=== PATIENT | male | born 1970 | race Caucasian/White ===

== ENCOUNTER 2016-09-14 14:30 | Emergency (ER) | payer SELFPAY ==
[2016-09-14] MEDS ORDERED: NS 1,000 ML IV ONE (14:53)
--- NOTE | 2016-09-14 14:53 | CPEKG ---
Heart Rate: 58 RR Interval: 1034 P-R Interval: 156 QRSD Interval: 84 QT Interval: 408 QTC Interval: 401 P [place]: 52 QRS [place]: 54 T Wave [place]: 43 EKG Severity - NORMAL ECG - EKG Impression: SINUS RHYTHM Electronically Signed By: Jovan Alexander 14-Sep-2016 20:45:49
--- NOTE | 2016-09-14 14:53 | EDPHY ---
H & P HPI/ROS: HPI CHIEF COMPLAINT: Right-sided chest pain HISTORY OF PRESENT ILLNESS: This patient very pleasant 46-year-old male denies any significant medical history except for GERD and takes omeprazole he is visiting [facility] from [place], he presents emergency room after was seen at Urgent Care for right-sided chest discomfort. He had a EKG urgency that was unremarkable. He was told to go the emergency room by EMS for chest pain evaluation. Denies having shortness of breath, pleuritic pain, hemoptysis , denies history of DVT or PE. Does tell me that he has right-sided chest discomfort that he describes a dull ache nonradiating. He does tell me that this is been present constantly for the past 2 weeks and is not went away. It is located on his right side. He describes a dull ache right-sided chest constant in nature for 2 weeks. No associated shortness of breath. No associated nausea no associated diaphoresis. Denies fever. Denies any leg swelling or calf pain. He does tell me that this started after doing 20 pushups the day before. He does tell me that it does hurt slightly when he moves his right arm around also sometimes he has tenderness when you press on his right anterior chest wall. Denies trauma. Past Medical History: GERD Past Surgical History: No significant surgical history Social History: Social smoker, social drinker, denies illicit drugs, visiting from [place] Family History: Noncontributory ROS REVIEW OF SYSTEMS: A comprehensive 10 point review of systems is otherwise negative aside from elements mentioned in the history of present illness. Exam Constitutional appears well nontoxic, triage nursing summary reviewed, vital signs reviewed, awake/alert. Eyes normal conjunctivae and sclera, EOMI, PERRLA. HENT normal inspection, atraumatic, moist mucus membranes, no epistaxis, neck supple/ no meningismus, no raccoon eyes. Respiratory clear to auscultation bilaterally, normal breath sounds, no respiratory distress, no wheezing. Cardiovascular chest wall: Nontender palpation, rate normal, regular rhythm, no murmur, no edema, distal pulses normal. Gastrointestinal soft, non-tender, no rebound, no guarding, normal bowel sounds, no distension, no pulsatile mass. Genitourinary no CVA tenderness. Musculoskeletal no midline vertebral tenderness, full range of motion, no calf swelling, no tenderness of extremities, no meningismus, good pulses, neurovascularly intact. Skin pink, warm, & dry, no rash, skin atraumatic. Neurologic awake, alert and oriented x 3, AAOx3, moves all 4 extremities equally, motor intact, sensory intact, CN II-XII intact, normal cerebellar, normal vision, normal speech. Psychiatric normal mood/affect. Heme/Lymph/Immune no lymphadenopathy. Differential diagnosis includes but is not limited to: ACS, atypical chest pain , pneumothorax, pneumonia, pulmonary embolism, aortic dissection, congestive heart failure, tumor, musculoskeletal pain, esophageal pain, GERD, peptic ulcer disease, pancreatitis Medical Decision Making: The IV establishment, blood work, EKG, full cardiac rn, chest x-ray troponin and D-dimer. This appears to be atypical chest pain right-sided dull ache. Will evaluate for acute coronary syndrome however. Re-evaluation: EKG interpretation by me on record in [employer] system. Impression time of EKG 1452, this is sinus rhythm rate of 58, there is no acute ischemic changes specifically no ST elevation, ST depression, T-wave abnormalities prolonged intervals. No signs of cardiac arrhythmia. Unremarkable EKG. 1713: Re-evaluation this time patient resting comfortably no complaints. I did go over in detail his blood work, including negative troponin, negative D- dimer, nonischemic EKG and a chest x-ray with rib series does not indicate acute rib fracture on the right side. He has right-sided rib pain mild tenderness palpation on exam. Unrevealing workup here in emergency room no indication of acute coronary syndrome. Plan is to repeat troponin EKG and this is normal allow be discharged from the emergency room. He understands return to the ER if develops worsening pain shortness of breath or does not feel well. EKG interpretation by me on record in [employer] system. Impression time of EKG 17 50, this is a repeat EKG sinus rhythm rate of 55 no acute ischemic changes appreciated. Unremarkable EKG. Source: Patient, EMS Constitutional: Initial Vital Signs Temperature (C) 36.7 C 09/14/16 14:49 Heart Rate 61 09/14/16 14:49 Respiratory Rate 16 09/14/16 14:49 Blood Pressure 127/87 H 09/14/16 14:49 O2 Sat (%) 94 09/14/16 14:49 O2 Delivery Mode Room Air Allergies/Adverse Reactions: No Known Allergies Allergy (Unverified 09/14/16 14:48) Home Medications: Medication Instructions Recorded Omeprazole 09/14/16 Medical Decision Making - Diagnostics Imaging Results: Imaging Impressions Chest X-Ray 09/14/16 14:53 Impression: 1. Possible nondisplaced lateral right sixth rib fracture. 2. Mild peribronchial thickening which could be related to bronchitis. Ribs X-Ray 09/14/16 15:40 Impression: No rib fracture identified. - Data Points Laboratory Results: Laboratory Results 09/14/16 14:13 09/14/16 14:13 09/14/16 09/14/16 09/14/16 17:45 14:13 14:13 WBC RBC Hgb Hct MCV MCH MCHC RDW Plt Count MPV Neut % (Auto) Lymph % (Auto) [place] % (Auto) Eos % (Auto) Baso % (Auto) Nucleat RBC Rel Count Absolute Neuts (auto) Absolute Lymphs (auto) Absolute Monos (auto) Absolute Eos (auto) Absolute Basos (auto) Absolute Nucleated RBC Immature Gran % Immature Gran # PT 12.5 SEC SEC (12.0-15.0) INR 0.94 (0.83-1.16) APTT 27.2 SEC SEC (23.0-38.0) D-Dimer < 0.27 ug/mLFEU ug/mLFEU (0.00-0.50) Sodium 136 mEq/L mEq/L (134-144) Potassium 4.5 mEq/L mEq/L (3.5-5.2) Chloride 102 mEq/L mEq/L (97-110) Carbon Dioxide 23 mEq/l mEq/l (22-31) Anion Gap 11 mEq/L mEq/L (8-16) BUN 16 mg/dL mg/dL (7-23) Creatinine 1.0 mg/dL mg/dL (0.7-1.3) Estimated GFR > 60 Glucose 121 mg/dL H mg/dL (70-100) Calcium 9.9 mg/dL mg/dL (8.5-10.4) Magnesium 2.0 mg/dL mg/dL (1.6-2.3) Total Bilirubin 0.7 mg/dL mg/dL (0.1-1.4) Conjugated Bilirubin 0.4 mg/dL mg/dL (0.0-0.5) Unconjugated Bilirubin 0.3 mg/dL mg/dL (0.0-1.1) AST 33 IU/L IU/L (17-59) ALT 45 IU/L IU/L (21-72) Alkaline Phosphatase 109 IU/L IU/L (38-126) Creatine Kinase 100 IU/L IU/L (0-224) CK-MB (CK-2) Fraction 0.98 ng/mL ng/mL (0-3.19) Troponin I Pending < 0.012 ng/mL ng/mL (0-0.034) NT-Pro-B Natriuret Pep 47 pg/mL pg/mL (0-125) Total Protein 7.3 g/dL g/dL (6.3-8.2) Albumin 4.8 g/dL g/dL (3.5-5.0) Lipase 111.0 IU/L IU/L (23-300) 09/14/16 14:13 WBC 6.41 10^3/uL 10^3/uL (3.80-9.50) RBC 4.96 10^6/uL 10^6/uL (4.40-6.38) Hgb 16.3 g/dL g/dL (13.7-17.5) Hct 47.2 % % (40.0-51.0) MCV 95.2 fL fL (81.5-99.8) MCH 32.9 pg pg (27.9-34.1) MCHC 34.5 g/dL g/dL (32.4-36.7) RDW 12.6 % % (11.5-15.2) Plt Count 301 10^3/uL 10^3/uL (150-400) MPV 10.6 fL fL (8.7-11.7) Neut % (Auto) 62.2 % % (39.3-74.2) Lymph % (Auto) 27.1 % % (15.0-45.0) [place] % (Auto) 7.5 % % (4.5-13.0) Eos % (Auto) 2.3 % % (0.6-7.6) Baso % (Auto) 0.6 % % (0.3-1.7) Nucleat RBC Rel Count 0.0 % % (0.0-0.2) Absolute Neuts (auto) 3.98 10^3/uL 10^3/uL (1.70-6.50) Absolute Lymphs (auto) 1.74 10^3/uL 10^3/uL (1.00-3.00) Absolute Monos (auto) 0.48 10^3/uL 10^3/uL (0.30-0.80) Absolute Eos (auto) 0.15 10^3/uL 10^3/uL (0.03-0.40) Absolute Basos (auto) 0.04 10^3/uL 10^3/uL (0.02-0.10) Absolute Nucleated RBC 0.00 10^3/uL 10^3/uL (0-0.01) Immature Gran % 0.3 % % (0.0-1.1) Immature Gran # 0.02 10^3/uL 10^3/uL (0.00-0.10) PT INR APTT D-Dimer Sodium Potassium Chloride Carbon Dioxide Anion Gap BUN Creatinine Estimated GFR Glucose Calcium Magnesium Total Bilirubin Conjugated Bilirubin Unconjugated Bilirubin AST ALT Alkaline Phosphatase Creatine Kinase CK-MB (CK-2) Fraction Troponin I NT-Pro-B Natriuret Pep Total Protein Albumin Lipase Medications Given: Discontinued Medications Sodium Chloride (Ns) 1,000 mls @ 0 mls/hr IV ONCE ONE; Wide Open PRN Reason: Protocol Stop: 09/14/16 14:54 Last Admin: 09/14/16 16:45 Dose: Not Given Ketorolac Tromethamine (Toradol) 30 mg IVP EDNOW ONE Stop: 09/14/16 15:13 Last Admin: 09/14/16 16:45 Dose: Not Given Departure - Departure Disposition: Home, Routine, Self-Care Clinical Impression: Right-sided chest pain Condition: Good Instructions: Chest Pain (ED), Chest Wall Pain (ED) Additional Instructions: 1. Return emergency room if develops any worsening symptoms includes severe chest pain, shortness of breath you do not feel well. I would try a trial of anti-inflammatories including Tylenol Motrin. Referrals: Patient,NotPresent [Unknown] - As per Instructions
[2016-09-14 14:55] VITALS: RESP 16; TEMP 98.1
[2016-09-14 15:02] LABS: % IMMATURE GRANULYOCYTES 0.3 % (0.0-1.1); ABSOLUTE IMMATURE GRANULOCYTES 0.02 10^3/uL (0.00-0.10); ADD DIFF? NO; ADD MORPH? NO; ADD SCAN? NO; ATYPICAL LYMPHOCYTE FLAG 10 (0-99); FRAGMENT RBC FLAG 0 (0-99); HEMATOCRIT 47.2 % (40.0-51.0); HEMOGLOBIN 16.3 g/dL (13.7-17.5); LEFT SHIFT FLG 10 (0-99); LIPEMIA HEMOLYSIS FLAG 90 (0-99); MEAN CELL HEMOGLOBIN 32.9 pg (27.9-34.1); MEAN CELL HEMOGLOBIN CONCENTR. 34.5 g/dL (32.4-36.7); MEAN CELL VOLUME 95.2 fL (81.5-99.8); MEAN PLATELET VOLUME 10.6 fL (8.7-11.7); PLATELET CLUMPS FLAG 0 (0-99); PLATELET COUNT 301 10^3/uL (150-400); RED BLOOD CELL COUNT 4.96 10^6/uL (4.40-6.38); RED CELL DISTRIBUTION WIDTH 12.6 % (11.5-15.2)
[2016-09-14 15:05] LABS: ALANINE AMINOTRANSFERASE 45 IU/L (21-72); ALBUMIN 4.8 g/dL (3.5-5.0); ALKALINE PHOSPHATASE 109 IU/L (38-126); ANION GAP 11 mEq/L (8-16); ASPARTATE AMINOTRANSFERASE 33 IU/L (17-59); BILIRUBIN,TOTAL 0.7 mg/dL (0.1-1.4); BILIRUBIN-CONJUGATED 0.4 mg/dL (0.0-0.5); BILIRUBIN-UNCONJUGATED 0.3 mg/dL (0.0-1.1); CALCIUM 9.9 mg/dL (8.5-10.4); CARBON DIOXIDE 23 mEq/l (22-31); CHLORIDE 102 mEq/L (97-110); GLOMERULAR FILTRATION RATE > 60; GLUCOSE 121 mg/dL (70-100); POTASSIUM 4.5 mEq/L (3.5-5.2); SODIUM 136 mEq/L (134-144); TOTAL PROTEIN 7.3 g/dL (6.3-8.2)
[2016-09-14 15:06] LABS: INR 0.94 (0.83-1.16); PROTIME(PATIENT) 12.5 SEC (12.0-15.0)
[2016-09-14 15:07] LABS: APTT 27.2 SEC (23.0-38.0)
[2016-09-14] MEDS ORDERED: KETOROLAC 30 MG/1 ML SDV IVP ONE (15:12)
[2016-09-14 15:17] LABS: CREATINE KINASE-MB FRACTION 0.98 ng/mL (0-3.19); TROPONIN I < 0.012 ng/mL (0-0.034)
[2016-09-14 16:44] VITALS: O2SAT 97
--- NOTE | 2016-09-14 17:52 | CPEKG ---
Heart Rate: 55 RR Interval: 1091 P-R Interval: 156 QRSD Interval: 82 QT Interval: 396 QTC Interval: 379 P [place]: 71 QRS [place]: 66 T Wave [place]: 56 EKG Severity - NORMAL ECG - EKG Impression: SINUS RHYTHM Electronically Signed By: Jovan Alexander 14-Sep-2016 20:45:49
[2016-09-14 18:51] VITALS: BP 128/85; PULSE 68
== END 2016-09-14 18:50 | disposition home or self-care (01) ==
DX: R07.9 Chest pain, unspecified (principal); F17.200 Nicotine dependence, unspecified, uncomplicated